=== PATIENT | female | born 1965 | race Caucasian/White ===

== ENCOUNTER 2017-08-29 10:08 | Day surgery (SDC) | payer MEDICAID ==
[~2017-08-29] VITALS: Ht 152.4 cm; Wt 56.2 kg
[2017-08-29] MEDS ORDERED: LIDOCAINE 2% 100 MG/5 ML UJET TP ONE (11:08)
== END 2017-08-29 11:55 | disposition home or self-care (01) ==
LOC: MDS 10:08 → MMU 10:09 → MDS 11:55
PROVIDERS: ATTEND Internal Medicine Gastroenterology
DX: K64.8 Other hemorrhoids (principal); E11.9 Type 2 diabetes mellitus without complications; E78.5 Hyperlipidemia, unspecified; I10 Essential (primary) hypertension; Z79.899 Other long term (current) drug therapy; Z79.84 Long term (current) use of oral hypoglycemic drugs; Z68.24 Body mass index [BMI] 24.0-24.9, adult
CPT/HCPCS: 82948